=== PATIENT | male | born 1935 | race Caucasian/White ===

== ENCOUNTER 2020-06-22 11:27 | Emergency (ER) | payer MEDICARE, OTHER ==
[~2020-06-22 11:27] MED LIST: 8 HOUR650 MG PO; ACIDOPHILUS1 EAC4 PO; ALLOPURINOL100 MG PO; ATENOLOL25 MG PO; COLACE100 MG PO; ELIQUIS5 MG PO; FLOMAX0.4 MG PO; FOLIC ACID1 MG PO; HCTZ12.5 MG PO; MIRALAX17 GM PO; MOBIC7.5 MG PO; PERCOCET 5-3251 EACH PO; PROSCAR5 MG PO
[2020-06-22 12:54] LABS: BASOPHIL 0.3 % (0-2); EOSINOPHIL 0 % (0-7); HCT 34.8 % (42.0-52.0); HGB 10.9 g/dl (13.2-18.0); LYMPHOCYTE 45.8 % (15-48); MCH 29.2 pg (25.0-31.0); MCHC 31.3 g/dL (32.0-36.0); MCV 93.3 fL (78.0-100.0); MPV 9.8 fL (6.0-9.5); NEUTROPHIL 40.9 % (41-80); NRBC 0; RBC 3.73 M/uL (4.70-6.00); RDW 17.5 % (11.5-14.0); WBC 3.2 K/uL (4.0-10.5)
[2020-06-22 12:56] LABS: PLT 66 K/uL (150-400)
[2020-06-22 13:08] LABS: ALBUMIN 2.4 g/dL (3.4-5.0); BILIRUBIN - TOTAL 0.6 mg/dL (0.2-1.0); CREATININE 1.03 mg/dL (0.67-1.17); GLOBULIN (CALCULATION) 3.2 g/dL; POTASSIUM 3.9 mmol/L (3.5-5.1); TOTAL PROTEIN 5.6 g/dL (6.4-8.2)
[2020-06-22 14:09] LABS: BILIRUBIN NEGATIVE (NEGATIVE); BLOOD TRACE-INTACT Ery/uL (NEGATIVE); CLARITY SLIGHTLY HAZY (CLEAR); COLOR YELLOW (YELLOW); GLUCOSE (U) NORMAL (NORMAL); LEUKOCYTES NEGATIVE Leu/uL (NEGATIVE); NITRITE NEGATIVE (NEGATIVE); PROTEIN 1+ mg/dL (NEGATIVE); pH 6.5 (5.0-9.0)
[2020-06-22 14:16] LABS: URINARY WBC 20-50
[2020-06-22 14:17] LABS: BACTERIA TRACE; SQUAMOUS EPITHELIAL CELLS RARE
== END 2020-06-22 18:20 | disposition home or self-care (01) ==
LOC: FER 11:27
PROVIDERS: Emergency Medicine
DX: U07.1 COVID-19 (principal); R41.82 Altered mental status, unspecified; I25.2 Old myocardial infarction; I10 Essential (primary) hypertension
CPT/HCPCS: 36415; 80053; 81001; 83605; 84145; 85025; J2185; J7030; U0002

== ENCOUNTER 2020-09-15 08:19 | Emergency (ER) | payer MEDICARE, OTHER ==
[2020-09-15 09:13] LABS: BILIRUBIN NEGATIVE (NEGATIVE); BLOOD NEGATIVE Ery/uL (NEGATIVE); CLARITY CLOUDY (CLEAR); COLOR YELLOW (YELLOW); GLUCOSE (U) NORMAL (NORMAL); LEUKOCYTES 2+ Leu/uL (NEGATIVE); NITRITE NEGATIVE (NEGATIVE); PROTEIN TRACE (LOW) mg/dL (NEGATIVE); pH 7.5 (5.0-9.0)
[2020-09-15 09:20] LABS: URINARY WBC 20-50
[2020-09-15 09:21] LABS: AMORPHOUS PHOSPHATE CRYSTALS LARGE; BACTERIA 1+
[2020-09-15 10:08] LABS: BASOPHIL 0.4 % (0-2); EOSINOPHIL 0.2 % (0-7); HCT 37.5 % (42.0-52.0); HGB 12.2 g/dl (13.2-18.0); LYMPHOCYTE 34.7 % (15-48); MCHC 32.5 g/dL (32.0-36.0); MCV 89.1 fL (78.0-100.0); MONOCYTE 18.4 % (0-12); MPV 9.1 fL (6.0-9.5); NEUTROPHIL 46.1 % (41-80); NRBC 0; PLT 103 K/uL (150-400); RBC 4.21 M/uL (4.70-6.00); RDW 15.2 % (11.5-14.0); WBC 4.8 K/uL (4.0-10.5)
[2020-09-15 10:18] LABS: INR 1.5 (0.9-1.2); PROTHROMBIN TIME 17.2 SECONDS (11.4-13.6)
[2020-09-15 10:28] LABS: ALBUMIN 2.7 g/dL (3.4-5.0); BUN/CREAT RATIO (CALC) 23.7 RATIO; CREATININE 0.93 mg/dL (0.67-1.17); GLOBULIN (CALCULATION) 3.3 g/dL; POTASSIUM 3.8 mmol/L (3.5-5.1)
[2020-09-15 11:26] LABS: CORONAVIRUS 2019 SARS-COV-2 POSITIVE (NEGATIVE); INFLUENZA A NAA NEGATIVE (NEGATIVE)
== END 2020-09-15 12:08 | disposition other institution (70) ==
LOC: FER 08:19
PROVIDERS: Emergency Medicine
DX: I62.9 Nontraumatic intracranial hemorrhage, unspecified (principal); N39.0 Urinary tract infection, site not specified; R79.1 Abnormal coagulation profile; U07.1 COVID-19; I10 Essential (primary) hypertension; I25.10 Atherosclerotic heart disease of native coronary artery without angina pectoris; Z98.890 Other specified postprocedural states
CPT/HCPCS: 36415; 70450; 71045; 80053; 81001; 83605; 84484; 85025; 85610; 87088; 93005; J0696; J1100; U0002